=== PATIENT | female | born 1980 | race Caucasian/White ===

== ENCOUNTER 2019-11-23 13:16 | Outpatient (CLI) | payer BC, SELFPAY ==
[2019-11-23 13:32] LABS: Hematocrit 41.9 % (37.0-47.0); Hemoglobin 14.3 g/dL (12.0-15.0)
== END 2019-11-23 13:17 | disposition home or self-care (01) ==
LOC: ANHSURGERY 13:20
PROVIDERS: Anesthesiology; PCP Physician Assistant; Visit Provider Obstetrics & Gynecology
DX: D64.9 Anemia, unspecified (principal)
CPT/HCPCS: 36415; 85014; 85018

== ENCOUNTER 2019-11-28 08:12 | Outpatient (CLI) | payer BC, SELFPAY ==
[2019-11-28 18:02] LABS: SARS-CoV-2 RNA PCR Negative
== END 2019-11-28 08:13 | disposition home or self-care (01) ==
PROVIDERS: PCP Physician Assistant; Visit Provider Obstetrics & Gynecology
DX: Z01.812 Encounter for preprocedural laboratory examination (principal); Z20.828 Contact with and (suspected) exposure to other viral communicable diseases
CPT/HCPCS: 87635; C9803; U0003

== ENCOUNTER 2019-11-30 00:34 | Day surgery (SDC) | payer BC, SELFPAY ==
[2019-10-24 12:32] VITALS: BMI 20.5
[2019-11-30] MEDS: ACETAMINOPHEN 500 MG TABLET 1000 MG PO (10:40)
[2019-11-30 10:41] VITALS: BP 106/82; PULSE 70; RESP 16; TEMP 36.4; O2SAT 100
[2019-11-30] MEDS: LACTATED RINGERS 1,000 ML 30 ML IV CONT (10:47)
--- NOTE | 2019-11-30 11:27 | PM.IMHP ---
H&P: HPI History of Present Illness Date/Time: 11/30/19 11:27 Chief complaint: Menorrhagia Narrative: 39 y/o with heavy menses and profound anemia requiring iron injections. Her partner has had a vasectomy. She has completed her childbearing and is interested in surgical management of her menorrhagia. Review of Systems Review of Systems: All systems reviewed & are unremarkable except as noted in HPI and below PMFSH Past Medical History Medical History (Updated 11/30/19 @ 11:34 by Esau Winn MD) Anxiety Hypothyroidism Surgical History Surgical History (Updated 11/30/19 @ 11:33 by Esau Winn MD) History of augmentation mammoplasty History of D&C History of foot surgery Family History Family History Mother Patient's mother is in good health Sibling Patient's brother is in good health Father Patient's father is Social History Social History Smoking status: Never smoker Alcohol intake: current Drinks per week: 4 Spiritual care concerns: No Meds Home Medications and Allergies Home Medications Medication Instructions Recorded Confirmed Type L norgest/e.estradiol-e.estrad 1 tablet PO DAILY 10/24/19 11/30/19 History [Daysee] cyanocobalamin (vitamin B-12) 1,000 mcg IM WEEKLY 10/24/19 11/30/19 History levothyroxine [Tirosint] 125 mcg PO DAILY 10/24/19 11/30/19 History liothyronine 5 mcg PO BID 10/24/19 11/30/19 History sertraline 100 mg PO DAILY 10/24/19 11/30/19 History Allergies Allergy/AdvReac Type Severity Reaction Status Date / Time amoxicillin Allergy Severe Hives Verified 11/30/19 10:11 Penicillins Allergy Severe Hives Verified 11/30/19 10:11 Vital Signs Vital Signs - 24 hr 11/30/19 10:41 Temperature 36.4 C Pulse Rate 70 Respiratory Rate 16 Blood Pressure 106/82 Pulse Oximetry 100 Exam Const: Orientation/consciousness: patient oriented x3 Other: Well-developed, well-nourished female in no acute distress. Neck: Thyroid: thyroid normal Lymphatic: no lymphadenopathy noted (in neck, axilla or inguinal nodes) Resp: Effort & Inspection: normal respiratory effort Auscultation: clear to auscultation bilaterally Cardio: Rate: regular rate Rhythm: regular rhythm Heart sounds: S1 normal heart sound present and S2 normal heart sound present GI: Other: ABD: Soft, nontender, nondistended. No guarding or rebound tenderness. No hepatosplenomegaly. : General: Yes no CVA tenderness Other: External genitalia: normal female hair distribution, without lesion. Urethral meatus: no lesion, non prolapsed. Bladder: no mass, nontender Vagina: well-estrogenized, without lesion or discharge. No cystocele or rectocele. Cervix: no lesion or discharge. Uterus: small, anteverted, freely mobile, nontender Adnexa: no mass or tenderness. Anus/perineum: no lesions, nontender Back/Spine/Pelvis: Back: no CVA tenderness Skin: General skin exam: normal color and no rashes or lesions noted Neuro: General: patient oriented x3 Extrem: Other: Extremities: nontender with no edema Psych: Mental Status: mental status grossly normal Affect: normal affect Assessment and Plan Assessment and plan (1) Menorrhagia: Qualifiers: Menorrhagia type: with regular cycle Qualified Code(s): N92.0 - Excessive and frequent menstruation with regular cycle Code(s): N92.0 - Excessive and frequent menstruation with regular cycle Status: Acute Assessment and Plan: We have reviewed medical and surgical options. She prefers the latter. Specifically, she is interested in hysteroscopy, dilation and curettage and endometrial ablation. She understands risks of surgery to include risks of anesthesia, risks of pain, infection, bleeding, blood products, thromboembolic phenomena and damage to adjacent structures such as bowel, bladder
--- NOTE | 2019-11-30 11:41 | WPDANESEPPF ---
Anes - Initial Pre Proc Eval Procedure: Operation Date: 11/30/19 12:00 Proposed Procedures p Hysteroscopy Dilation and Curettage With Vesna Ablation - Esau Winn MD Date/Time: 11/30/19 11:41 Surgeon: Esau Winn MD Pre Op Diagnosis: Menorrhagia Patient Data Age: 39 Gender: F Height: 5 ft 8 in Weight: 61.2 kg Last Vital Signs Temp 97.6 F 11/30/19 10:41 Pulse 70 11/30/19 10:41 Resp 16 11/30/19 10:41 BP 106/82 11/30/19 10:41 Pulse Ox 100 11/30/19 10:41 Allergies Allergy/AdvReac Type Severity Reaction Status Date / Time amoxicillin Allergy Severe Hives Verified 11/30/19 10:11 Penicillins Allergy Severe Hives Verified 11/30/19 10:11 Home Medications Medication Instructions Recorded Confirmed Type L norgest/e.estradiol-e.estrad 1 tablet PO DAILY 10/24/19 11/30/19 History [Daysee] cyanocobalamin (vitamin B-12) 1,000 mcg IM WEEKLY 10/24/19 11/30/19 History levothyroxine [Tirosint] 125 mcg PO DAILY 10/24/19 11/30/19 History liothyronine 5 mcg PO BID 10/24/19 11/30/19 History sertraline 100 mg PO DAILY 10/24/19 11/30/19 History Patient hx anesthesia problems: none Family hx anesthesia problems: none PMFSH Past Medical History Medical History (Updated 11/30/19 @ 11:34 by Esau Winn MD) Anxiety Hypothyroidism Surgical History Surgical History (Updated 11/30/19 @ 11:33 by Esau Winn MD) History of augmentation mammoplasty History of D&C History of foot surgery Family History Family History Mother Patient's mother is in good health Sibling Patient's brother is in good health Father Patient's father is Social History Social History Smoking status: Never smoker Alcohol intake: current Drinks per week: 4 Spiritual care concerns: No Anes - Eval Final PreProcedure Day of Procedure 11/30/19 11:41 Patient weight: normal Heart: regular rate and rhythm Lungs: clear to auscultation Airway: Mallampati scale class II Neurological: alert and oriented Last oral intake: >/= 8 hours ASA classification: II Emergent: no Anesthetic plan: proceed Anesthesia type and monitoring: general GIVS and standard monitoring Informed Consent: The patient's anesthetic plan and its attendant risks and benefits were discussed with the patient/family/POA. Questions were solicited and answers provided to the satisfaction of the patient/family/POA.
--- NOTE | 2019-11-30 12:05 | WPDHPUPDATE1 ---
History and Physical Update Update Date/Time: 11/30/19 12:05 History and Physical has been reviewed, including an updated exam of the patient. There are NO changes in the patient's condition. Risks, benefits, and alternatives have been discussed and questions answered. Patient agrees to proceed with procedure.
--- NOTE | 2019-11-30 12:41 | PM.PROC ---
Procedure Note - Detailed Date of procedure: 11/30/19 Pre-op diagnosis: Menorrhagia Post-op diagnosis: same Procedure performed: Hysteroscopy D&C Endometrial ablation Description of procedure: The patient was taken to the operating room where she was prepared and draped in the usual sterile fashion in the dorsal lithotomy position. The bladder was drained with a red rubber catheter. A sterile speculum was placed into the vagina. The anterior lip of the cervix was grasped with single-tooth tenaculum. Ten mL of 1% lidocaine was administered in a paracervical block. The cervix was then gently dilated using Hegar dilators until a 7 mm dilator could be passed. Hysteroscopy was performed using sterile saline as a distention medium. Findings are as noted above. Sharp curettage was then performed, and endometrial curettings were collected on a Telfa pad and passed off to be sent to pathology. Finally, the the Vesna device was advanced and endometrial ablation commenced without difficulty. The device was withdrawn and a second look was taken using the hysteroscope. Excellent coverage of the endometrial cavity was noted. The tenaculum was removed. Hemostasis was excellent. Sponge, lap, needle and instrument counts were correct. The patient was awakened and taken to the recovery room in stable condition. I was present and scrubbed through the entire procedure. Implants: None Anesthesia: MAC and local (paracervical block) Surgeon: Esau Winn MD Estimated blood loss (mL): 5 Drains: No Packing: No Pathology: yes (endometrial curettings) Complications: None Condition: stable Disposition: PACU Findings: Uterus is retroverted. The uterus sounded to a depth of 7 cm with a cervical length of 3 cm, giving a subtracted uterine cavity length of 4 cm. Both tubal ostia seen. The endometrial cavity was unremarkable.
[2019-11-30 12:49] VITALS: BP 105/69; PULSE 70; RESP 16; O2SAT 96
--- NOTE | 2019-11-30 13:06 | SUR.PHASEII ---
[id number] dr arenas at bedside removing a vulvar skin tag that he forgot to do in the or. phone consent obtained from gloria linder(mother).
[2019-11-30 13:20] VITALS: BP 110/85; PULSE 61; RESP 14
== END 2019-11-30 13:40 | disposition home or self-care (01) ==
PROVIDERS: PCP Physician Assistant; Visit Provider Obstetrics & Gynecology
PROC: 0U5B8ZZ Destruction of Endometrium, Via Natural or Artificial Opening Endoscopic (ICD-10-PCS; CPT 58563; principal; 2019-11-30 12:00)
DX: N92.0 Excessive and frequent menstruation with regular cycle (principal); D64.9 Anemia, unspecified; E03.9 Hypothyroidism, unspecified
CPT/HCPCS: 58563; 88305; A9270; J1100; J1885; J2250; J2405; J2704; J3010; J7030; J7120

== ENCOUNTER 2022-06-06 09:56 | Emergency (ER) | payer BC, SELFPAY ==
--- NOTE | 2022-06-06 10:07 | ED.URI ---
HPI - URI/Sore Throat General Chief Complaint: Upper Respiratory Infection Stated Complaint: SORE THROAT Time Seen by Provider: 06/06/22 10:08 Source: patient Mode of arrival: ambulatory Limitations: no limitations History of Present Illness HPI Narrative: 42-year-old female presents with complaint of nasal congestion, postnasal drainage, mild cough, sore throat for the past 3 days. Afebrile. Reports throat is really sore today. Is taking [id number] ibuprofen to treat symptoms. Not taking any sinus medications. Does not take daily antihistamines. Patient is well-appearing and talkative. Denies nausea vomiting diarrhea. No chest pain or shortness of breath. All systems reviewed and negative except as noted above. Related Data Home Medications Medication Instructions Recorded Confirmed cyanocobalamin (vitamin B-12) 1,000 mcg IM WEEKLY 10/24/19 06/06/22 1,000 mcg/mL injection kit levothyroxine 125 mcg capsule 125 mcg PO DAILY 10/24/19 06/06/22 (Tirosint) liothyronine 5 mcg tablet 5 mcg PO BID 10/24/19 06/06/22 sertraline 100 mg tablet 100 mg PO DAILY 10/24/19 06/06/22 Allergies Allergy/AdvReac Type Severity Reaction Status Date / Time amoxicillin Allergy Severe Hives Verified 06/06/22 10:02 Penicillins Allergy Severe Hives Verified 06/06/22 10:02 Review of Systems Review of Systems: CONSTITUTIONAL: Denies fever, chills, or sweats. Reports fatigue. EYES: Denies visual changes, redness, or discharge. ENT: Reports rhinorrhea, congestion, sore throat. Denies otalgia. CARDIOVASCULAR: Denies chest pain, palpitations, or edema. RESPIRATORY: Reports cough. Denies dyspnea. GASTROINTESTINAL: Denies abdominal pain, nausea, vomiting, or diarrhea. GENITOURINARY: Denies dysuria or hematuria. SKIN: Denies rash or itching. MUSCULOSKELETAL: Denies back pain, joint pain, or myalgia. NEUROLOGIC: Denies headache, numbness, or weakness. PSYCHIATRIC: Denies anxiety or depression. All other systems reviewed are negative, except as documented in HPI. [facility] Past Medical History Medical History (Updated 06/06/22 @ 10:17 by Tricia Vera NP) Anxiety Hypothyroidism Surgical History Surgical History (Updated 11/30/19 @ 11:33 by Esau Winn MD) History of augmentation mammoplasty History of D&C History of foot surgery Family History Family History Mother Patient's mother is in good health Sibling Patient's brother is in good health Father Patient's father is Social History Social History Smoking status: Never smoker Alcohol intake: current Drinks per week: 4 Spiritual care concerns: No Comments At time of signature, agree with nursing past medical, surgical, social and family history. There is no relevant family history pertinent to the presenting complaint. Exam Narrative: GENERAL: This is a well-nourished, well-developed patient, in no apparent distress. HEAD: normocephalic, atraumatic. EYES: PERRL. Sclera clear/white. Vision is grossly intact. EARS: External ears normal, auditory canals clear and without drainage, TMs normal without perforation. Hearing grossly intact. NOSE: External nose normal with no obvious nasal discharge, nares without redness, no rhinorrhea. THROAT: Mucous membranes moist, mild erythema with clear postnasal drainage. No swelling or exudates. NECK: Neck supple, non-tender without lymphadenopathy, masses or thyromegaly. CARDIOVASCULAR: Regular rate and rhythm without murmurs, gallops, or rubs. RESPIRATORY: Clear to auscultation. Breath sounds equal bilaterally. No wheezes, rales, or rhonchi. SKIN: warm, Dry, intact with no suspicious lesions or rash, good texture and turgor. NEURO: awake, alert, and oriented to person, place and time. There were no obvious focal neurologic abnormalities. EXTREMITIES: No joint tenderness, effusion
[2022-06-06 10:10] VITALS: BP 112/83; PULSE 88; RESP 16; TEMP 36.6; O2SAT 100
== END 2022-06-06 10:19 | disposition home or self-care (01) ==
PROVIDERS: Emergency Provider Nurse Practitioner Family; PCP Physician Assistant
DX: E03.9 Hypothyroidism, unspecified (principal); F41.9 Anxiety disorder, unspecified; J06.9 Acute upper respiratory infection, unspecified; B97.89 Other viral agents as the cause of diseases classified elsewhere
CPT/HCPCS: 87081; 87880; 99213; G0463

== ENCOUNTER 2023-02-04 08:51 | Outpatient (CLI) | payer BC, SELFPAY ==
--- NOTE | ~2023-02-04 | XR_ITS ---
Cervical Spine: AP, lateral, open-mouth views Clinical History: Pain Findings: The normal lordotic curve is maintained. No fracture identified. There is minimal grade 1 a nterolisthesis of C4 over C5. The intervertebral disc spaces are well maintained. Pre-vertebral soft tissues are unremarkable. Impression: Minimal grade 1 anterolisthesis of C4 over C5. Reviewed, dictated and finalized at location . [facility] Impression: Minimal grade 1 anterolisthesis of C4 over C5.
== END 2023-02-04 08:52 ==
LOC: GOSHIMG 08:56
PROVIDERS: PCP Physician Assistant; Visit Provider Physician Assistant
DX: M54.12 Radiculopathy, cervical region (principal); M43.12 Spondylolisthesis, cervical region
CPT/HCPCS: 72040

== ENCOUNTER 2023-06-25 09:25 | Outpatient (CLI) | payer BC, SELFPAY ==
--- NOTE | ~2023-06-25 | US_ITS ---
EXAMINATION: US thyroid DATE: 06/25/2023 10:30 INDICATION: Abnormal thyroid function test TECHNIQUE: Multiple ultrasound images of the thyroid were obtained. COMPARISON: 08/10/2017 FINDINGS: The right thyroid lobe measures 4.2 x 2.1 x 1.3 cm. The left thyroid lobe measures 4.2 x 1.5 x 1.5 c m. The previously seen is a solid slightly hyperechoic TI RADS 3 right thyroid nodule is less clearly distinguished from the surrounding thyroid in the current study and was not measured by the sonograp her. It does not appear significantly changed in size measuring up to 9 mm maximal diameter on the pr ovided images. There is heterogeneous echogenicity with coarsened echotexture throughout the thyroid with diffuse increased vascular flow on color Doppler. IMPRESSION: 1. Heterogeneous echogenicity, coarsened echotexture and increased vascularity throughout the thyroid which can be seen with thyroiditis. 2. No significant interval change in a likely benign TI-RADS 3 right thyroid nodule which measures 9 mm in the current study. Reviewed, dictated and finalized at location A. IMPRESSION: 1. Heterogeneous echogenicity, coarsened echotexture and increased vascularity throughout the thyroid which can be seen with thyroiditis. 2. No significant interval change in a likely benign TI-RADS 3 right thyroid no dule which measures 9 mm in the current study.
== END 2023-06-25 09:26 ==
PROVIDERS: PCP Physician Assistant; Visit Provider Physician Assistant
DX: R94.6 Abnormal results of thyroid function studies (principal); E04.2 Nontoxic multinodular goiter
CPT/HCPCS: 76536

== ENCOUNTER 2023-10-16 08:52 | Outpatient (CLI) | payer BC, SELFPAY ==
--- NOTE | ~2023-10-16 | US_ITS ---
US transvaginal Ordering provider: Marah Sanchez History: . irregular menstruation . Comparison: None. Technique: endovaginal ultrasound of the pelvis (Doppler ultrasound interrogation techniques used as needed for this exam.) FINDINGS: CERVIX: Normal. UTERUS: Measures 6.3x 4.8x 4.1 cm in length which is within normal limits and is anteverted. No myom etrial masses. ENDOMETRIUM: Normal in thickness measuring 6 mm. (Note: the premenopausal endometrium may measure up to 16 mm when in the secretory phase.) No endometrial masses, cysts or fluid. CUL DE SAC: No free fluid. RIGHT OVARY: Normal in size measuring 2.9x 3x 4.1 cm. Normal echotexture. Doppler vascular flow prese nt. Complex cyst is seen measuring 2.5 x 2.5 x 3.3 cm. LEFT OVARY: Normal in size measuring 1.4x 1.4x 2.4 cm. Normal echotexture. Doppler vascular flow pres ent. ADNEXA: Normal. No mass. IMPRESSION: Complex cyst in the right ovary. Follow-up advised. Otherwise, normal pelvic ultrasound. Reviewed, dictated and finalized at location A. IMPRESSION: Complex cyst in the right ovary. Follow-up advised. Otherwise, normal pelvic ul trasound.
== END 2023-10-16 08:53 ==
PROVIDERS: PCP Physician Assistant
DX: N92.6 Irregular menstruation, unspecified (principal); N83.201 Unspecified ovarian cyst, right side
CPT/HCPCS: 76830

== ENCOUNTER 2023-12-07 11:41 | Outpatient (CLI) | payer BC, SELFPAY ==
--- NOTE | ~2023-12-07 | XR_ITS ---
Right Hand Technique: PA and lateral views were obtained. Clinical History: Joint pain Findings: No acute fracture or dislocation is seen. Osseous alignment is anatomic. Joint spaces are p reserved. Soft tissues are unremarkable. Impression: Unremarkable right hand. Reviewed, dictated and finalized at location M. Impression: Unremarkable right hand.
--- NOTE | ~2023-12-07 | XR_ITS ---
Right ankle Technique: AP and lateral views were obtained. Clinical History: Joint pain Findings: No acute fracture or dislocation is seen. Osseous alignment is anatomic. Ankle mortise and other visualized joint spaces are preserved. Soft tissues are otherwise unremarkable. Impression: Unremarkable right ankle. Reviewed, dictated and finalized at location . Impression: Unremarkable right ankle.
--- NOTE | ~2023-12-07 | XR_ITS ---
Left wrist Technique: PA and lateral views were obtained. Clinical History: Joint pain Findings: No acute fracture or dislocation is seen. Osseous alignment is anatomic. Joint spaces are p reserved. Soft tissues are unremarkable. Impression: Unremarkable left wrist radiographs. Reviewed, dictated and finalized at location . Impression: Unremarkable left wrist radiographs.
--- NOTE | ~2023-12-07 | XR_ITS ---
Right wrist Technique: PA and lateral views were obtained. Clinical History: Pain Findings: No acute fracture or dislocation is seen. Osseous alignment is anatomic. Joint spaces are p reserved. Soft tissues are unremarkable. Impression: Unremarkable right wrist radiographs. Reviewed, dictated and finalized at location M. Impression: Unremarkable right wrist radiographs.
--- NOTE | ~2023-12-07 | XR_ITS ---
XR sacroiliac joints min 3V Ordering provider: Patito May, TECHNICAL WRITER History: . Multiple joint pain . Comparison: None. FINDINGS: BONES: No acute fracture or dislocation. JOINTS: The bilateral sacroiliac joint spaces appear well maintained. No bony fusion of the sacroilia c joints or bony erosions. Facet joint disease in the lower lumbar area. SOFT TISSUES: Unremarkable. IMPRESSION: NO ACUTE OSSEOUS ABNORMALITY. NORMAL SACROILIAC JOINTS. Reviewed, dictated and finalized at location A.
--- NOTE | ~2023-12-07 | XR_ITS ---
Left ankle Technique: AP and lateral views were obtained. Clinical History: Joint pain Findings: No acute fracture or dislocation is seen. Osseous alignment is anatomic. Ankle mortise and other visualized joint spaces are preserved. Soft tissues are otherwise unremarkable. Impression: Unremarkable left ankle. Reviewed, dictated and finalized at location . Impression: Unremarkable left ankle.
--- NOTE | ~2023-12-07 | XR_ITS ---
Left foot Technique: AP and lateral views were obtained. Clinical History: Joint pain Findings: No acute fracture or dislocation is seen. There is chronic postoperative changes distal fir st metatarsal. Osseous alignment is anatomic. Joint spaces are preserved without erosive or degenerat sukumar change. Soft tissues are unremarkable. Impression: No acute abnormality. Chronic postoperative change of the distal first metatarsal, likely prior osteotomy/bunionectomy. Reviewed, dictated and finalized at location M. Impression: No acute abnormality. Chronic postoperative change of the distal first metatarsal, likely prior osteo vanita/bunionectomy.
--- NOTE | ~2023-12-07 | XR_ITS ---
Cervical Spine: AP, lateral, open-mouth views Clinical History: Pain Findings: The normal lordotic curve is maintained. There is 3 mm anterolisthesis of C4 over C5. The i ntervertebral disc spaces are well maintained. Pre-vertebral soft tissues are unremarkable. Impression: 3 mm anterolisthesis of C4 over C5. Reviewed, dictated and finalized at [facility]. Impression: 3 mm anterolisthesis of C4 over C5.
--- NOTE | ~2023-12-07 | XR_ITS ---
Left Hand Technique: PA and lateral views were obtained. Clinical History: Joint pain Findings: No acute fracture or dislocation is seen. Osseous alignment is anatomic. Joint spaces are p reserved. Soft tissues are unremarkable. Impression: Unremarkable left hand. Reviewed, dictated and finalized at location M. Impression: Unremarkable left hand.
--- NOTE | ~2023-12-07 | XR_ITS ---
Right foot Technique: AP and lateral views were obtained. Clinical History: Joint pain Findings: No acute fracture or dislocation is seen. There is orthopedic hardware at the distal aspect of the first metatarsal, likely prior osteotomy. Osseous alignment is anatomic. Joint spaces are pre served without erosive or degenerative change. Soft tissues are unremarkable. Impression: No acute abnormality. Postoperative change of the distal first metatarsal. Reviewed, dictated and finalized at location . Impression: No acute abnormality. Postoperative change of the distal first metatarsal.
== END 2023-12-07 11:42 | disposition home or self-care (01) ==
PROVIDERS: PCP Physician Assistant; Visit Provider Nurse Practitioner
DX: Z09 Encounter for follow-up examination after completed treatment for conditions other than malignant neoplasm (principal); M25.541 Pain in joints of right hand; M25.542 Pain in joints of left hand; M25.572 Pain in left ankle and joints of left foot; M25.571 Pain in right ankle and joints of right foot; M25.532 Pain in left wrist; M25.531 Pain in right wrist
CPT/HCPCS: 72040; 72202; 73100; 73120; 73600; 73620